=== PATIENT | female | born 1985 | race Caucasian/White ===

== ENCOUNTER 2017-10-22 15:55 | Observation (INO) | payer MEDICAID ==
[2017-10-22] MEDS ORDERED: SODIUM CHLORIDE 0.9% 500 ML IV STA (16:04)
[2017-10-22] MEDS ORDERED: SODIUM CHLORIDE 0.9% 1,000 ML IV STA (16:04)
--- NOTE | 2017-10-22 16:07 | ED ---
General Adult HPI - General Chief complaint: Chest Pain Stated complaint: Chest pain Time Seen by Provider: 10/22/17 16:04 Source: patient, RN notes reviewed, old records reviewed Mode of arrival: wheelchair Limitations: no limitations - History of Present Illness Initial comments: This is a 32-year-old female to the ER for evaluation. This patient presents today for evaluation regards to chest pain. Patient has no prior history of chest pain. No significant medical or surgical history aside from smoking. Patient has no prior heart evaluation. Patient Dr. reynolds earlier today woke up with symptoms tonight. Pain is worse when she takes a deep breath. Patient denies bowel pain eating without difficulty. No recent fevers. No trauma - Related Data Home Medications Medication Instructions Recorded Confirmed [place]-Linyah 28 1 tab PO HS 10/22/17 10/22/17 Venlafaxine HCl [Effexor XR] 75 mg PO HS 10/22/17 10/22/17 Allergies Allergy/AdvReac Type Severity Reaction Status Date / Time Penicillins Allergy Anaphylaxis Verified 10/22/17 20:53 sulfamethoxazole Allergy Rash/Hives Verified 10/22/17 20:53 [From Bactrim] trimethoprim [From Bactrim] Allergy Rash/Hives Verified 10/22/17 20:53 Review of Systems ROS Statement: Those systems with pertinent positive or pertinent negative responses have been documented in the HPI. ROS Other: All systems not noted in ROS Statement are negative. Past Medical History Past Medical History: No Reported History History of Any Multi-Drug Resistant Organisms: None Reported Past Surgical History: No Surgical Hx Reported Additional Past Surgical History / Comment(s): left eye plastics Past Anesthesia/Blood Transfusion Reactions: No Reported Reaction Past Psychological History: No Psychological Hx Reported Smoking Status: Current every day smoker Past Alcohol Use History: Rare Past Drug Use History: None Reported - Past Family History Father Family Medical History: Hypertension General Exam Limitations: no limitations General appearance: alert, in no apparent distress Head exam: Present: atraumatic, normocephalic, normal inspection Eye exam: Present: normal appearance, PERRL, EOMI. Absent: scleral icterus, conjunctival injection, periorbital swelling ENT exam: Present: normal exam, mucous membranes moist Neck exam: Present: normal inspection. Absent: tenderness, meningismus, lymphadenopathy Respiratory exam: Present: normal lung sounds bilaterally. Absent: respiratory distress, wheezes, rales, rhonchi, stridor Cardiovascular Exam: Present: regular rate, normal rhythm, normal heart sounds. Absent: systolic murmur, diastolic murmur, rubs, gallop, clicks GI/Abdominal exam: Present: soft, normal bowel sounds. Absent: distended, tenderness, guarding, rebound, rigid Extremities exam: Present: normal inspection, full ROM, normal capillary refill. Absent: tenderness, pedal edema, joint swelling, calf tenderness Back exam: Present: normal inspection Neurological exam: Present: alert, oriented X3, CN II-XII intact Psychiatric exam: Present: normal affect, normal mood Skin exam: Present: warm, dry, intact, normal color. Absent: rash Course Vital Signs 10/22/17 10/22/17 10/22/17 15:58 17:18 18:00 Temperature 98.2 F Pulse Rate 100 89 88 Respiratory 18 16 16 Rate Blood Pressure 146/81 122/67 135/75 O2 Sat by Pulse 98 99 100 Oximetry 10/22/17 20:31 Temperature Pulse Rate 88 Respiratory 18 Rate Blood Pressure 137/88 O2 Sat by Pulse 98 Oximetry - Reevaluation(s) Reevaluation #1: Patient discussed at length even the low risk for heart disease. 7 elevated enzymes, beneficial sustain hospital or at least for a second laboratory evaluation. Patient feels more comfortable being monitored in the hospital EKG Findings - EKG Comments: EKG Findings:: EKG shows sinus rhythm rate of 84, MT 134, QRS 80, QTC 434 Medical Decision Making - Medical Decision Making 32 female DEL chest pain anterior chest pain mild elevation of troponin positive d-dimer negative CTA of chest. Patient given pain control is feeling better, patient would like to stay in the hospital for further evaluation - Lab Data Result diagrams: 10/23/17 03:55 10/22/17 16:10 Lab Results 10/22/17 10/22/17 10/22/17 Range/Units 16:10 16:10 16:10 WBC 9.4 (3.8-10.6) k/uL RBC 4.62 (3.80-5.40) m/uL Hgb 13.7 (11.4-16.0) gm/dL Hct 41.2 (34.0-46.0) % MCV 89.3 (80.0-100.0) fL MCH 29.7 (25.0-35.0) pg MCHC 33.2 (31.0-37.0) g/dL RDW 12.7 (11.5-15.5) % Plt Count 228 (150-450) k/uL Neutrophils % 77 % Lymphocytes % 16 % Monocytes % 4 % Eosinophils % 2 % Basophils % 1 % Neutrophils # 7.2 (1.3-7.7) k/uL Lymphocytes # 1.5 (1.0-4.8) k/uL Monocytes # 0.3 (0-1.0) k/uL Eosinophils # 0.2 (0-0.7) k/uL Basophils # 0.0 (0-0.2) k/uL PT (9.0-12.0) sec INR (<1.2) APTT (22.0-30.0) sec D-Dimer (<0.60) mg/L FEU Sodium 138 (137-145) mmol/L Potassium 4.3 (3.5-5.1) mmol/L Chloride 105 (98-107) mmol/L Carbon Dioxide 24 (22-30) mmol/L Anion Gap 9 mmol/L BUN 12 (7-17) mg/dL Creatinine 0.81 (0.52-1.04) mg/dL Est GFR (MDRD) Af Amer >60 (>60 ml/min/1.73 sqM) Est GFR (MDRD) Non-Af >60 (>60 ml/min/1.73 sqM) Glucose 91 (74-99) mg/dL Calcium 8.9 (8.4-10.2) mg/dL Magnesium 1.9 (1.6-2.3) mg/dL Total Bilirubin 0.5 (0.2-1.3) mg/dL AST 24 (14-36) U/L ALT 22 (9-52) U/L Alkaline Phosphatase 68 (38-126) U/L Total Creatine Kinase 56 (30-135) U/L CK-MB (CK-2) 0.4 (0.0-2.4) ng/mL CK-MB (CK-2) Rel Index 0.7 Troponin I 0.023 (0.000-0.034) ng/mL Total Protein 6.8 (6.3-8.2) g/dL Albumin 4.0 (3.5-5.0) g/dL Lipase 86 (23-300) U/L 10/22/17 Range/Units 16:10 WBC (3.8-10.6) k/uL RBC (3.80-5.40) m/uL Hgb (11.4-16.0) gm/dL Hct (34.0-46.0) % MCV (80.0-100.0) fL MCH (25.0-35.0) pg MCHC (31.0-37.0) g/dL RDW (11.5-15.5) % Plt Count (150-450) k/uL Neutrophils % % Lymphocytes % % Monocytes % % Eosinophils % % Basophils % % Neutrophils # (1.3-7.7) k/uL Lymphocytes # (1.0-4.8) k/uL Monocytes # (0-1.0) k/uL Eosinophils # (0-0.7) k/uL Basophils # (0-0.2) k/uL PT 9.7 (9.0-12.0) sec INR 1.0 (<1.2) APTT 26.2 (22.0-30.0) sec D-Dimer 0.66 H (<0.60) mg/L FEU Sodium (137-145) mmol/L Potassium (3.5-5.1) mmol/L Chloride (98-107) mmol/L Carbon Dioxide (22-30) mmol/L Anion Gap mmol/L BUN (7-17) mg/dL Creatinine (0.52-1.04) mg/dL Est GFR (MDRD) Af Amer (>60 ml/min/1.73 sqM) Est GFR (MDRD) Non-Af (>60 ml/min/1.73 sqM) Glucose (74-99) mg/dL Calcium (8.4-10.2) mg/dL Magnesium (1.6-2.3) mg/dL Total Bilirubin (0.2-1.3) mg/dL AST (14-36) U/L ALT (9-52) U/L Alkaline Phosphatase (38-126) U/L Total Creatine Kinase (30-135) U/L CK-MB (CK-2) (0.0-2.4) ng/mL CK-MB (CK-2) Rel Index Troponin I (0.000-0.034) ng/mL Total Protein (6.3-8.2) g/dL Albumin (3.5-5.0) g/dL Lipase (23-300) U/L - Radiology Data Radiology results: report reviewed (Chest x-ray negative CTA chest is negative) , image reviewed Critical Care Time Critical Care Time: Yes Total Critical Care Time: 31 Disposition Clinical Impression: Chest pain Disposition: ADMITTED IP TO THIS [facility] Condition: Undetermined
[2017-10-22 16:25] LABS: Basophils % (A) 1 %; Eosinophils # (A) 0.2 k/uL (0-0.7); Eosinophils % (A) 2 %; HCT 41.2 % (34.0-46.0); HGB 13.7 gm/dL (11.4-16.0); Lymphocytes # (A) 1.5 k/uL (1.0-4.8); Lymphocytes % (A) 16 %; MCH 29.7 pg (25.0-35.0); MCHC 33.2 g/dL (31.0-37.0); MCV 89.3 fL (80.0-100.0); Mean Platelet Volume 7.8; Monocytes # (A) 0.3 k/uL (0-1.0); Monocytes % (A) 4 %; Neutrophils # (A) 7.2 k/uL (1.3-7.7); Neutrophils % (A) 77 %; Platelet Count 228 k/uL (150-450); RBC 4.62 m/uL (3.80-5.40); RDW 12.7 % (11.5-15.5); WBC 9.4 k/uL (3.8-10.6)
[2017-10-22 16:27] LABS: ALT 22 U/L (9-52); AST 24 U/L (14-36); Alkaline Phosphatase 68 U/L (38-126); Anion Gap 9 mmol/L; Blood Urea Nitrogen 12 mg/dL (7-17); Calcium 8.9 mg/dL (8.4-10.2); Carbon Dioxide 24 mmol/L (22-30); Chloride 105 mmol/L (98-107); D-Dimer 0.66 mg/L FEU (<0.60); Glucose 91 mg/dL (74-99); Lipase 86 U/L (23-300); Magnesium 1.9 mg/dL (1.6-2.3); Potassium 4.3 mmol/L (3.5-5.1); Sodium 138 mmol/L (137-145); Total Bilirubin 0.5 mg/dL (0.2-1.3); Total Protein 6.8 g/dL (6.3-8.2)
[2017-10-22 16:31] LABS: Partial Thromboplastin Time 26.2 sec (22.0-30.0); Prothrombin Time 9.7 sec (9.0-12.0)
--- NOTE | 2017-10-22 16:41 | XR ---
EXAMINATION TYPE: XR chest 2V DATE OF EXAM: 10/22/2017 COMPARISON: NONE HISTORY: Chest pain TECHNIQUE: Frontal and lateral views of the chest are obtained. FINDINGS: There is no focal air space opacity, pleural effusion, or pneumothorax seen. The cardiac silhouette size is within normal limits. There are overlying cardiac leads. Patient is rotated. The osseous structures are intact. IMPRESSION: No acute cardiopulmonary process.
[2017-10-22 16:44] LABS: Creatine Kinase MB 0.4 ng/mL (0.0-2.4); Troponin I 0.023 ng/mL (0.000-0.034)
[2017-10-22] MEDS ORDERED: RX INFO: IV CONTRAST WAS GIVEN 1 EACH MISC MISCELLANE PRN (16:54)
--- NOTE | 2017-10-22 18:38 | CT ---
EXAMINATION TYPE: CT angio chest (without 3-D renderings independent workstation) DATE OF EXAM: 10/22/2017 6:20 PM COMPARISON: NONE HISTORY: Chest pressure that radiates to back. CT DLP: 485.7 mGycm. Automated exposure control for dose reduction was used. CONTRAST: CTA scan of the thorax is performed with IV Contrast, patient injected with 100 mL of Omnip aque 350, pulmonary embolism protocol. . FINDINGS: LUNGS: The lungs are grossly clear, there is no concerning parenchymal mass or nodule identified. T here is no pleural effusion or pneumothorax seen. The tracheobronchial tree is patent. MEDIASTINUM: There is mild contrast-enhancement of the pulmonary artery and its branches, there is no CT evidence for pulmonary embolism. There are no greater than 1 cm hilar or mediastinal lymph nodes . There is no cardiomegaly. No pericardial effusion. Aorta is unremarkable. OTHER: No additional significant abnormality is seen. IMPRESSION: NO ACUTE PROCESS.
--- NOTE | 2017-10-22 18:43 | CT ---
EXAMINATION TYPE: CT abdomen pelvis w con DATE OF EXAM: 10/22/2017 COMPARISON: NONE HISTORY: Chest pressure that radiates to back. CT DLP: 1521.5 mGycm Automated exposure control for dose reduction was used. TECHNIQUE: Helical acquisition of images was performed from the lung bases through the pelvis. CONTRAST: Performed without Oral Contrast and with IV Contrast, patient injected with 100 mL of Omnip aque 350. FINDINGS: LUNG BASES: No significant abnormality is appreciated. LIVER/GB: No significant abnormality is appreciated. PANCREAS: No significant abnormality is seen. SPLEEN: No significant abnormality is seen. ADRENALS: No significant abnormality is seen. KIDNEYS: No significant abnormality is seen. FREE AIR: No free air is visualized. RETROPERITONEAL ADENOPATHY: None visualized REPRODUCTIVE ORGANS: There is a 4 cm smoothly-marginated simple-appearing left adnexal cyst noted, pr edominantly in retrouterine position. This can be further characterized with 6 week follow-up pelvic Doppler ultrasound. URINARY BLADDER: No significant abnormality is seen. PELVIC ADENOPATHY: None visualized. OSSEOUS STRUCTURES: No significant abnormality is seen. BOWEL: No significant abnormality is seen. The appendix has normal appearance. VASCULATURE: Unremarkable. IMPRESSION: NO ACUTE PROCESS.
[2017-10-22] MEDS ORDERED: NITROGLYCERIN SL TABS 0.4 MG TAB SUBLINGUAL PRN (18:52)
[2017-10-22] MEDS ORDERED: HEPARIN SODIUM,PORCINE 5,000 UNIT/ML 1 ML VIAL IV ONE (18:52)
[2017-10-22] MEDS ORDERED: ASPIRIN 81 MG PO STA (18:52)
[2017-10-22] MEDS ORDERED: HEPARIN SODIUM,PORCINE 5,000 UNIT/ML 1 ML VIAL IV PRN (18:52)
[2017-10-22] MEDS ORDERED: MORPHINE SULFATE 2 MG/ML SYRINGE IV PRN (18:52)
[2017-10-22] MEDS ORDERED: HEPARIN SOD,PORK IN 0.45% NACL 25,000 UNIT in 0.45% NACL 1 500ML.BAG IV SCH (19:00)
[2017-10-22] MEDS: METOPROLOL TARTRATE 25 MG TAB PO SCH (21:04)
[2017-10-22 22:51] LABS: Creatine Kinase MB 0.3 ng/mL (0.0-2.4); Troponin I 0.016 ng/mL (0.000-0.034)
[2017-10-23 04:10] LABS: Mean Platelet Volume 8.6; Platelet Count 190 k/uL (150-450)
[2017-10-23 04:47] LABS: Creatine Kinase MB 0.2 ng/mL (0.0-2.4); Troponin I 0.016 ng/mL (0.000-0.034)
[2017-10-23 05:02] LABS: Cholesterol 128 mg/dL (<200); HDL Cholesterol 45 mg/dL (40-60); LDL Cholesterol,Calculated 61 mg/dL (0-99); Triglycerides 108 mg/dL (<150)
[2017-10-23 08:43] VITALS: RESP 16
[2017-10-23] MEDS ORDERED: ASPIRIN 325 MG TAB PO SCH (09:00)
[2017-10-23] MEDS ORDERED: ATORVASTATIN 80 MG TAB PO SCH (09:00)
[2017-10-23] MEDS: METOPROLOL TARTRATE 25 MG TAB PO SCH (09:56)
--- NOTE | 2017-10-23 10:11 | HP ---
HISTORY AND PHYSICAL DATE OF SERVICE: 10/22/2017 CHIEF COMPLAINT: Chest pain. HISTORY OF PRESENT ILLNESS: This 32-year-old woman with a past medical history of GERD, history of depression, history of nicotine dependence, being followed by Dr. Chadd Lizarraga in the outpatient setting, was also having chest pains. Chest pain was felt in the anterior part of the chest, pressure type, without any associated symptoms but radiating to the back occasionally. The patient came to [facility] and was admitted for further evaluation and treatment. There is no history of any fever or rigors. No history of headache, loss of consciousness, seizures. Abdomen and pelvis CT scan done in the ER showed no acute process. A chest CTA showed no acute process. Patient admitted. There is no history of any fever, rigor or chills at this time. The chest pain is increasing with respirations. PAST MEDICAL HISTORY: 1. History of GERD. 2. History of left eye plastic surgery. 3. History of motion sickness. HOME MEDICATIONS: 1. Effexor XR 75 mg at bedtime. 2. [place]-Linyah 28 one p.o. at bedtime. 3. Motrin 800 mg b.i.d. p.r.n. ALLERGIES: PENICILLIN AND BACTRIM. FAMILY HISTORY: History of hypertension in the family. SOCIAL HISTORY: History of smoking on a daily basis. History of occasional alcohol intake. REVIEW OF SYSTEMS: ENT: No diminished hearing. No diminished vision. CARDIOVASCULAR SYSTEM: As mentioned earlier. RESPIRATORY SYSTEM: As mentioned earlier. GI: No nausea, vomiting. : No dysuria or retention. NERVOUS SYSTEM: No numbness, weakness. ALLERGY/IMMUNOLOGY: No asthma, hayfever. MUSCULOSKELETAL: As mentioned earlier. HEMATOLOGY/ONCOLOGY: No history of anemia. ENDOCRINE: No history of diabetes, hypothyroidism. CONSTITUTIONAL: As mentioned earlier. DERMATOLOGY: Negative. RHEUMATOLOGY: Negative. PSYCHIATRY: As mentioned earlier. PHYSICAL EXAMINATION: Patient is alert and oriented x3. Pulse is 77, blood pressure 135/78, respiration 16, temperature 98.7, pulse ox 100% on room air. HEENT: Conjunctivae normal. NECK: No jugular venous distention. CARDIOVASCULAR SYSTEM: S1, S2 muffled. RESPIRATORY SYSTEM: Breath sounds diminished at the bases. A few scattered rhonchi and crackles. ABDOMEN: Soft, nontender. No mass palpable. LEGS: No edema. No swelling. NERVOUS SYSTEM: Higher functions as mentioned earlier. Moves all 4 limbs. No focal motor or sensory deficit. LYMPHATICS: No lymph node palpable in neck, axillae or groin. SKIN: No ulcer, rash, bleeding. LABS: CBC within normal limits. Otherwise, CMP within normal limits. ASSESSMENT: 1. Chest pain for further evaluation; possibly unstable angina; possibly pleuritic in nature. 2. History of gastroesophageal reflux disease. 3. History of depression. 4. History of nicotine dependence. RECOMMENDATIONS AND DISCUSSION: In this 32-year-old woman who presented with multiple complex medical issues, we will monitor the patient closely, continue the current medications, continue with symptomatic treatment. Rule out myocardial infarction. Continue with heparin, unstable angina protocol. Otherwise, resume the home medications. Symptomatic treatment will be provided. Two-D echo is ordered. The prognosis is guarded because of multiple complex medical issues. Further recommendations to follow. A copy of this dictation is being forwarded to Dr. Lizarraga, who is the primary physician. MMBERYLL / ROXANAN: [id number] /
[2017-10-23 12:20] VITALS: BP 116/56; PULSE 94; TEMP 98.8
--- NOTE | 2017-10-23 13:20 | ECHOF ---
Referral Reason:trop MEASUREMENTS -------- HEIGHT: 162.6 cm WEIGHT: 106.6 kg BP: 120/60 RVIDd: 2.8 cm (< 3.3) IVSd: 1.0 cm (0.6 - 1.1) LVIDd: 4.8 cm (3.9 - 5.3) LVPWd: 0.8 cm (0.6 - 1.1) IVSs: 1.1 cm LVIDs: 3.6 cm LVPWs: 1.3 cm LA Diam: 3.3 cm (2.7 - 3.8) LAESV Index (A-L): 31.51 ml/m Ao Diam: 2.8 cm (2.0 - 3.7) AV Cusp: 1.7 cm (1.5 - 2.6) LA Diam: 3.6 cm (2.7 - 3.8) MV EXCURSION: 18.048 mm (> 18.000) MV EF SLOPE: 132 mm/s (70 - 150) EPSS: 0.4 cm MV E Darrell: 0.86 m/s MV DecT: 131 ms MV A Darrell: 0.61 m/s MV E/A Ratio: 1.42 RAP: 5.00 mmHg RVSP: 18.23 mmHg FINDINGS -------- Sinus rhythm. This was a technically good study. LV size, wall thickness and systolic function are normal, with an EF greater than 55%. The right ventricle is normal in size. LA is midly dilated 29-33ml/m2. The right atrial size is normal. The aortic valve is trileaflet, and appears structurally normal. No aortic stenosis or regurgitation. Mild mitral regurgitation is present. Mild tricuspid regurgitation present. There is no evidence of pulmonary hypertension. The right v entricular systolic pressure, as measured by Doppler, is 18.23mmHg. There is no pulmonic regurgitation present. The aortic root size is normal. There is no pericardial effusion. CONCLUSIONS -------- 1. LV size, wall thickness and systolic function are normal, with an EF greater than 55%. 2. LA is midly dilated 29-33ml/m2. 3. The aortic valve is trileaflet, and appears structurally normal. No aortic stenosis or regurgitati on. 4. Mild mitral regurgitation is present. 5. Mild tricuspid regurgitation present. 6. There is no evidence of pulmonary hypertension. 7. The right ventricular systolic pressure, as measured by Doppler, is 18.23mmHg. 8. There is no pulmonic regurgitation present. 9. The aortic root size is normal. 10. There is no pericardial effusion. CUSTOMER EXPERIENCE LEADER: Isha King RDCS
--- NOTE | 2017-10-23 14:09 | P.DS ---
Providers Date of admission: 10/22/17 18:52 Attending physician: Viktoriya Crump Consults: 10/22/17 18:52 Consult Physician Urgent Consulting Provider: Gilebrt Waller Consult Reason/Comments: cp Do you want consulting provider notified?: Yes Primary care physician: Chadd Lizarraga Hospital Course: Patient was admitted with pleuritic chest pain, patient was evaluated by cardiology, patient chest pain appears to be atypical patient had a CAT scan of the chest which did not show any pulmonary embolism or pneumonia is still a concern of esophagitis because of which I asked her to discontinue ibuprofen patient already takes Prilosec at home. Patient pain radiates to the back because of which there is a concern about cholelithiasis although pain is well- controlled wanted to go home because of which patient will be discharged today to get an outpatient ultrasound of the gallbladder results to be faxed to PCPs office. PHYSICAL EXAMINATION: GENERAL: The patient is alert and oriented x3, not in any acute distress. Well developed, well nourished. HEENT: Pupils are round and equally reacting to light. EOMI. No scleral icterus. No conjunctival pallor. Normocephalic, atraumatic. No pharyngeal erythema. No thyromegaly. CARDIOVASCULAR: S1 and S2 present. No murmurs, rubs, or gallops. PULMONARY: Chest is clear to auscultation, no wheezing or crackles. ABDOMEN: Soft, nontender, nondistended, normoactive bowel sounds. No palpable organomegaly. MUSCULOSKELETAL: No joint swelling or deformity. EXTREMITIES: No cyanosis, clubbing, or pedal edema. NEUROLOGICAL: Gross neurological examination did not reveal any focal deficits. SKIN: No rashes. Patient Condition at Discharge: Undetermined Plan - Discharge Summary Discharge Rx Participant: No New Discharge Prescriptions: Discontinued Ibuprofen [Motrin] 800 mg PO BID PRN PRN Reason: Pain No Action Venlafaxine HCl [Effexor XR] 75 mg PO HS [place]-Linyah 28 1 tab PO HS Discharge Medication List [place]-Linyah 28 1 tab PO HS 10/22/17 [History] Venlafaxine HCl [Effexor XR] 75 mg PO HS 10/22/17 [History] Follow up Appointment(s)/Referral(s): Chadd Lizarraga MD [Primary Care Provider] - 3 Days Lenin Rasmussen MD [STAFF PHYSICIAN] - 2 Weeks (Call office and make a follow up appointment with Dr. Rasmussen) Patient Instructions/Handouts: Chest Pain (ED) Activity/Diet/Wound Care/Special Instructions: Outpatient Ultrasound of Gallbladder recommended. Call outpatient scheduling for appointment Discharge Disposition: HOME SELF-CARE
[2017-10-23] MEDS ORDERED: VENLAFAXINE HCL ER 75 MG CAP PO SCH (21:00)
--- NOTE | 2017-10-23 23:11 | CONS ---
CONSULTATION Mrs. Alvarez is a 32-year-old female, who is seen for evaluation of chest pain. Patient's medical records were reviewed. This patient gives a history that she started having chest discomfort for last couple of days. The pain is in the substernal area. It is persistence. Initially she was slightly nauseated. The patient's pain increases with slightly deep breaths. She denies any significant shortness of breath. She denies chest pain. Pain does not increase with swelling. HOME MEDICATIONS: Include Effexor, one tablet at night. PAST MEDICAL HISTORY: Includes no history of any surgery. The patient has left . SOCIAL HISTORY: The patient is currently an everyday smoker. PHYSICAL EXAMINATION: In the emergency room, patient's vital signs were stable. The patient at present is comfortable. She is having mild discomfort. Blood pressure is 135/75 mmHg. Heart rate is 80 per minute. HEENT examination is negative. NECK: Supple. There is no increase in jugular venous pressure. Both the carotid pulses are felt. There is no bruit. Chest is symmetric. Heart the PMI is not felt. First and 2nd sounds normal. LUNGS: Clinically clear to auscultation and percussion. ABDOMEN: Soft. Liver and spleen not enlarged. Bowel sounds are heard. Extremities, peripheral pulses 2+. The patient's EKG shows normal sinus rhythm without any acute ischemic changes. The patient's three sets of troponins are almost identical and borderline elevated. The patient's echocardiogram reveals normal left ventricular systolic function. FINAL IMPRESSION: This patient's chest pain is atypical chest pain pleuritic in nature. EKG is normal. Echocardiogram reveals normal left ventricular systolic function. A CT scan of the chest pain as well is negative. There is no evidence of any calcium noted in the colon noted on the CT scan of the chest. We will evaluate the patient with a stress test as an outpatient. will be done. The patient can be discharged home. Otherwise, continue Prilosec twice a day. MMODL / IJN: [id number] /
== END 2017-10-23 13:40 | disposition home or self-care (01) ==
LOC: EC 15:55 → 3OBS 18:52 → 3SUR 10-23 07:37
PROVIDERS: ADMIT Hospitalist; ATTEND Hospitalist
DX: R07.81 Pleurodynia (principal); K21.9 Gastro-esophageal reflux disease without esophagitis; F32.9 Major depressive disorder, single episode, unspecified; F17.200 Nicotine dependence, unspecified, uncomplicated; R79.1 Abnormal coagulation profile; R89.0 Abnormal level of enzymes in specimens from other organs, systems and tissues; Z79.899 Other long term (current) drug therapy; Z88.0 Allergy status to penicillin; Z88.2 Allergy status to sulfonamides; Z82.49 Family history of ischemic heart disease and other diseases of the circulatory system; Z98.890 Other specified postprocedural states
CPT/HCPCS: 96376 ×2; 96366 ×2; 96361; 96365; 99291; 36415; 93005; 93306; 85379; 80061; 80053; 82550 ×2; 82553 ×2; 83690; 83735; 84484 ×2; 85025; 85049; 85610; 85730 ×2; 71046; 71275; 74177; G0378 ×2; J1644 ×3; Q9967

== ENCOUNTER → 2017-10-25 | Outpatient (CLI) | payer MEDICAID ==
--- NOTE | 2017-10-25 14:27 | US ---
EXAMINATION TYPE: US gallbladder DATE OF EXAM: 10/25/2017 COMPARISON: None CLINICAL HISTORY: K80.80 CHOLELITHIASIS. EXAM MEASUREMENTS: Liver Length: 14.7 cm Gallbladder Wall: 0.1 cm CBD: 0.4 cm Right Kidney: 10x 3.7 x 4.0 cm Pancreas: wnl portions seen, there is some bowel gas present. Liver: wnl Gallbladder: wnl Evidence for sonographic Carson's sign: No CBD: wnl Right Kidney: wnl IMPRESSION: 1. Normal right upper quadrant ultrasound as visualized.
== END | disposition home or self-care (01) ==
LOC: RADUSWWP 13:02
PROVIDERS: ATTEND Surgery
CPT/HCPCS: 76705

== ENCOUNTER 2017-11-17 10:03 | Day surgery (SDC) | payer MEDICAID ==
[2017-11-15 09:06] VITALS: BMI 37.9
[~2017-11-17 10:03] MED LIST: LACTATED RINGERS 1,000 ML IV SCH; LIDOCAINE 1% 20 ML VIAL (10MG/ML) FOR IV START INTRADERMA PRN
[2017-11-17 10:19] VITALS: RESP 16; TEMP 98.1
[2017-11-17] MEDS ORDERED: PROPOFOL 10 MG/ML 20 ML VIAL IV ONE (10:37)
[2017-11-17] MEDS ORDERED: GLYCOPYRROLATE 0.2 MG/ML 2 ML VIAL ONE (10:37)
[2017-11-17] MEDS ORDERED: LIDOCAINE 1% INJ 10MG/ML (20 ML MDV) ONE (10:37)
--- NOTE | 2017-11-17 10:50 | P.PCN ---
Date of Procedure: 11/17/17 Procedure(s) Performed: BRIEF HISTORY: Patient is a 32-year-old, pleasant, at female, scheduled for an upper endoscopy as a part of evaluation of long-standing history of GERD of 4 years duration. 2 Weeks ago she had an episode of severe chest pain and went to the emergency room and had cardiac workup done that was negative. She was started on Prilosec 20 mg daily basis and since then she is doing much better. She is scheduled for an upper endoscopy to evaluate further. PROCEDURE PERFORMED: Esophagogastroduodenoscopy with biopsy. PREOPERATIVE DIAGNOSIS: GERD and atypical chest. IV sedation per anesthesia. PROCEDURE: After informed consent was obtained, the patient was brought into the endoscopy unit. IV sedation was administered by Anesthesia under continuous monitoring. Initially the Olympus GIF-140 video endoscope was inserted into the mouth. Esophagus intubated without any difficulty. It was gradually advanced into the stomach and duodenum and carefully examined. The bulb and the second part of the duodenum appeared normal. The scope at this time was withdrawn to the stomach, adequately insufflated with air, and upon careful examination, mucosa of the antrum, had scattered erosions and biopsies were done from this area. The body, cardia and the fundus appeared normal. The scope was then withdrawn into the esophagus. Small sliding Hiatal hernia noted. The GE junction was located at 39 cm from the incisors. The esophagus appeared normal. There were no erosions or ulcerations seen. In the proximal esophagus there was a 5 mL polyp identified which was biopsied and the patient tolerated the procedure well. IMPRESSION: 1. Antral erosive gastritis. 2. Small hiatal hernia but no evidence of esophagitis or Sosa's esophagus. 3. 5 mm polyp in the proximal esophagus status post biopsy RECOMMENDATIONS: The findings of this examination were discussed with the patient as well as a family. She was advised to follow with the biopsy results. Her symptoms are suggestive of gastroesophageal reflux and hence she was advised to continue with Prilosec 20 mg daily and continue to follow antireflux measures..
[2017-11-17 11:27] VITALS: PULSE 80
[2017-11-17 11:48] VITALS: BP 125/74
== END 2017-11-17 11:48 | disposition home or self-care (01) ==
LOC: ORWHC2ENDO 10:03
PROVIDERS: ATTEND Internal Medicine Gastroenterology
DX: K21.0 Gastro-esophageal reflux disease with esophagitis (principal); K29.60 Other gastritis without bleeding; K44.9 Diaphragmatic hernia without obstruction or gangrene; F32.9 Major depressive disorder, single episode, unspecified; Z79.3 Long term (current) use of hormonal contraceptives; Z79.899 Other long term (current) drug therapy; Z88.0 Allergy status to penicillin; Z88.2 Allergy status to sulfonamides
CPT/HCPCS: 81025; 88305; 43239; J2001; J2704

== ENCOUNTER → 2018-01-28 | Outpatient (CLI) | payer MEDICAID ==
[2018-01-29 01:47] LABS: HIV AB P24 Non-Reactive (Non-Reactive); HIV P24 AG Non-Reactive (Non-Reactive)
== END | disposition home or self-care (01) ==
LOC: LABWHC1 16:22
PROVIDERS: ATTEND Obstetrics & Gynecology
DX: Z11.3 Encounter for screening for infections with a predominantly sexual mode of transmission (principal); Z20.2 Contact with and (suspected) exposure to infections with a predominantly sexual mode of transmission
CPT/HCPCS: 36415; 86695; 86696; 86704; 86780; 87340; 87390

== ENCOUNTER → 2020-03-28 | Outpatient (CLI) | payer OTHER ==
--- NOTE | 2020-03-28 10:31 | XR ---
Left foot HISTORY: Trauma and pain 3 views of the left foot Bone mineralization, joint spaces and alignment are maintained. Question a mild cortical irregularity to the proximal fifth metatarsal on the oblique view, possible normal variant, difficult to exclude nondisplaced fracture. Digits are flexed which may limit sensitivity. There is a plantar heel spur. C alcification present at the insertion of the Achilles tendon. IMPRESSION: Correlate for point tenderness proximal fifth metatarsal. No dislocation is evident. Foll ow-up as indicated.
== END | disposition home or self-care (01) ==
LOC: RADXRMAIN 09:26
PROVIDERS: ATTEND Emergency Medicine
DX: S93.602A Unspecified sprain of left foot, initial encounter (principal)

== ENCOUNTER 2024-11-17 12:47 | Emergency (ER) | payer BC, MEDICAID ==
[2024-11-17 12:53] VITALS: BP 142/77; PULSE 94; RESP 17
--- NOTE | 2024-11-17 13:25 | ED ---
General Adult HPI - General Chief complaint: Nausea/Vomiting/Diarrhea Stated complaint: Vomiting(19 weeks preg) Time Seen by Provider: 11/17/24 13:01 Source: patient, RN notes reviewed Mode of arrival: ambulatory Limitations: no limitations - History of Present Illness Initial comments: This is a 39-year-old female at 19 weeks gestation presenting to the emergency department for complaint of nausea, vomiting, diarrhea over the past 12 to 16 hours. She endorses multiple episodes of diarrhea and vomiting with no hematemesis or hematochezia or melena. She denies fevers, chills, abdominal pain, vaginal bleeding, cough, rhinorrhea, congestion. Patient states that she was instructed by her OB to report to the emergency department with concern for possible dehydration. She denies urinary complaints or flank pain. - Related Data Home Medications Medication Instructions Recorded Confirmed Alfalfa-Linyah 28 1 tab PO HS 10/22/17 11/15/17 Venlafaxine HCl [Effexor XR] 75 mg PO HS 10/22/17 11/15/17 Omeprazole Magnesium [PriLOSEC OTC] 20 mg PO DAILY 11/15/17 11/15/17 Allergies Allergy/AdvReac Type Severity Reaction Status Date / Time fluconazole [From Diflucan] Allergy Unknown Verified 11/17/24 12:53 Penicillins Allergy Anaphylaxis Verified 11/17/24 12:53 sulfamethoxazole Allergy Rash/Hives Verified 11/17/24 12:53 [From Bactrim] trimethoprim [From Bactrim] Allergy Rash/Hives Verified 11/17/24 12:53 Review of Systems ROS Statement: Those systems with pertinent positive or pertinent negative responses have been documented in the HPI. ROS Other: All systems not noted in ROS Statement are negative. Past Medical History Past Medical History: Chest Pain / Angina Additional Past Medical History / Comment(s): RECENT ADMISSION FOR CHEST PAIN History of Any Multi-Drug Resistant Organisms: None Reported Past Surgical History: No Surgical Hx Reported Additional Past Surgical History / Comment(s): left eye plastics Past Anesthesia/Blood Transfusion Reactions: No Reported Reaction Past Psychological History: No Psychological Hx Reported Smoking Status: Never smoker Past Alcohol Use History: None Reported, Rare Past Drug Use History: None Reported - Past Family History Father Family Medical History: Hypertension General Exam Limitations: no limitations Respiratory exam: Present: normal lung sounds bilaterally. Absent: respiratory distress, wheezes, rales, rhonchi, stridor Cardiovascular Exam: Present: regular rate, normal rhythm, normal heart sounds. Absent: systolic murmur, diastolic murmur, rubs, gallop, clicks GI/Abdominal exam: Present: soft, normal bowel sounds. Absent: distended, tenderness, guarding, rebound, rigid Extremities exam: Present: normal inspection, full ROM, normal capillary refill. Absent: tenderness, pedal edema, joint swelling, calf tenderness Back exam: Present: normal inspection Skin exam: Present: warm, dry, intact, normal color. Absent: rash Course Vital Signs 11/17/24 11/17/24 12:50 15:06 Temperature 98.2 F 98.8 F Pulse Rate 94 Respiratory 17 Rate Blood Pressure 142/77 O2 Sat by Pulse 100 Oximetry Medical Decision Making - Medical Decision Making Was pt. sent in by a medical professional or institution ([facility], ELECTRICIAN [employer], urgent care, hospital, or fpc...) When possible be specific @ -No Did you speak to anyone other than the patient for history (EMS, parent, family, police, friend...)? What history was obtained from this source @ -No Did you review nursing and triage notes (agree or disagree)? Why? @ -I reviewed and agree with nursing and triage notes Were old charts reviewed (outside hosp., previous admission, EMS record, old EKG, old radiological studies, urgent care reports/EKG's, fpc records)? Report findings @ -No old charts were reviewed Differential Diagnosis (chest pain, altered mental status, abdominal pain women, abdominal pain men, vaginal bleeding, weakness, fever, dyspnea, syncope, headache, dizziness, GI bleed, back pain, seizure, CVA, palpatations, mental health, musculoskeletal)? @ -Differential Abdominal Pain Women: Appendicitis, Cholecystitis, diverticulosis, ischemic bowel, pancreatitis, hepatitis, UTI, gastroenteritis, AAA, incarcerated hernia, bowel obstruction, constipation, inflammatory bowel, hepatitis, peptic ulcer disease, splenic infar ction, perforated viscus, vulvitis, ovarian torsion, PID, kidney stone, placenta abruption, this is not meant to be an all-inclusive list EKG interpreted by me (3pts min.). @ -none X-rays interpreted by me (1pt min.). @ -None done CT interpreted by me (1pt min.). @ -None done U/S interpreted by me (1pt. min.). @ -None done What testing was considered but not performed or refused? (CT, X-rays, U/S, labs)? Why? @ -None What meds were considered but not given or refused? Why? @ -None Did you discuss the management of the patient with other professionals (professionals i.e. Dr., PA, ELECTRICIAN BUS, lab, RT, psych nurse, social security specialist, structures technician, teacher, parking regulation enforcement officer, insurance case manager)? Give summary @ -No Was smoking cessation discussed for >3mins.? @ -No Was critical care preformed (if so, how long)? @ -No Were there social determinants of health that impacted care today? How? (Homelessness, low income, unemployed, alcoholism, drug addiction, transportation, low edu. Level, literacy, decrease access to med. care, senior care, rehab)? @ -No Was there de-escalation of care discussed even if they declined (Discuss DNR or withdrawal of care, Hospice)? DNR status @ -No What co-morbidities impacted this encounter? (DM, HTN, Smoking, COPD, CAD, Cancer, CVA, ARF, Chemo, Hep., AIDS, mental health diagnosis, sleep apnea, morbid obesity)? @ -None Was patient admitted / discharged? Hospital course, mention meds given and route, prescriptions, significant lab abnormalities, going to OR and other pertinent info. @ -Discharge. 39-year-old female presented emergency department complaint of nausea, vomiting, diarrhea. Overall patient is well appearing in No signs acute distress. Abdominal examination is unremarkable. She is provided with IV fluids and antiemetics. Labs remarkable for hyponatremia of 132 likely pseudohyponatremia secondary to . Urinalysis is unremarkable. heart tones are completed at bedside with no abnormalities. Patient is feeling better after fluids and antiemetics. Supportive treatment discussed. discussed with Dr. james Undiagnosed new problem with uncertain prognosis? @ -No Drug Therapy requiring intensive monitoring for toxicity (Heparin, Nitro, Insulin, Cardizem)? @ -No Were any procedures done? @ -No Diagnosis/symptom? @ -acute nausea and vomiting, diarrhea Acute, or Chronic, or Acute on Chronic? @ -acute Uncomplicated (without systemic symptoms) or Complicated (systemic symptoms)? @ -uncomplicated Side effects of treatment? @ -No Exacerbation, Progression, or Severe Exacerbation? @ -No Poses a threat to life or bodily function? How? (Chest pain, [place], [place], pneumonia, PE, COPD, DKA, ARF, appy, cholecystitis, CVA, Diverticulitis, Homicidal, Suicidal, threat to staff... and all critical care pts) @ -No - Lab Data Result diagrams: 11/17/24 13:26 11/17/24 13:26 Lab Results 11/17/24 11/17/24 11/17/24 Range/Units 13:26 13: 13: WBC 7.9 (3.8-10.6) k/uL RBC 4.34 (3.80-5.40) m/uL Hgb 12.4 (11.4-16.0) gm/dL Hct 37.5 (34.0-46.0) % MCV 86.4 (80.0-100.0) fL MCH 28.6 (25.0-35.0) pg MCHC 33.1 (31.0-37.0) g/dL RDW 14.0 (11.5-15.5) % Plt Count 197 (150-450) k/uL MPV 8.9 Neutrophils % 81 % Lymphocytes % 12 % Monocytes % 4 % Eosinophils % 1 % Basophils % 0 % Neutrophils # 6.5 (1.3-7.7) k/uL Lymphocytes # 1.0 (1.0-4.8) k/uL Monocytes # 0.3 (0-1.0) k/uL Eosinophils # 0.1 (0-0.7) k/uL Basophils # 0.0 (0-0.2) k/uL Sodium 132 L (137-145) mmol/L Potassium 4.0 (3.5-5.1) mmol/L Chloride 102 (98-107) mmol/L Carbon Dioxide 22 (22-30) mmol/L Anion Gap 8 mmol/L BUN 4 L (7-17) mg/dL Creatinine 0.64 (0.52-1.04) mg/dL Est GFR (CKD-EPI)AfAm >90 (>60 ml/min/1.73 sqM) Est GFR (CKD-EPI)NonAf >90 (>60 ml/min/1.73 sqM) Glucose 94 (74-99) mg/dL Calcium 9.1 (8.4-10.2) mg/dL Total Bilirubin 0.5 (0.2-1.3) mg/dL AST 20 (14-36) U/L ALT 21 (4-34) U/L Alkaline Phosphatase 65 (38-126) U/L Total Protein 6.3 (6.3-8.2) g/dL Albumin 3.7 (3.5-5.0) g/dL Amylase 44 (30-110) U/L Lipase 79 (23-300) U/L Urine Color Yellow Urine Appearance Cloudy H (Clear) Urine pH 7.5 (5.0-8.0) Ur Specific [place] 1.025 (1.001-1.035) Urine Protein Trace H (Negative) Urine Glucose (UA) Negative (Negative) Urine Ketones Negative (Negative) Urine Blood Negative (Negative) Urine Nitrite Negative (Negative) Urine Bilirubin Negative (Negative) Urine Urobilinogen 8.0 (<2.0) mg/dL Ur Leukocyte Esterase Negative (Negative) Urine RBC <1 (0-5) /hpf Urine WBC 1 (0-5) /hpf Ur Squamous Epith Cells 9 H (0-4) /hpf Urine Bacteria Occasional H (None) /hpf Urine Mucus Few H (None) /hpf Disposition Clinical Impression: Nausea and vomiting Disposition: HOME SELF-CARE Condition: Good Instructions (If sedation given, give patient instructions): Acute Nausea and Vomiting (ED) Additional Instructions: Please return to the Emergency Department if symptoms worsen or any other concerns. Is patient prescribed a controlled substance at d/c from ED?: No Referrals: Chadd Lizarraga MD [Primary Care Provider] - 1-2 days Time of Disposition: 14:53
[2024-11-17] MEDS: SODIUM CHLORIDE 0.9% 1,500 ML IV STA (13:40)
[2024-11-17] MEDS: ONDANSETRON 4 MG/2 ML VIAL IVP STA (13:42)
[2024-11-17 14:02] LABS: Basophils % (A) 0 %; Eosinophils # (A) 0.1 k/uL (0-0.7); Eosinophils % (A) 1 %; HCT 37.5 % (34.0-46.0); HGB 12.4 gm/dL (11.4-16.0); Lymphocytes % (A) 12 %; MCH 28.6 pg (25.0-35.0); MCHC 33.1 g/dL (31.0-37.0); MCV 86.4 fL (80.0-100.0); Mean Platelet Volume 8.9; Monocytes # (A) 0.3 k/uL (0-1.0); Monocytes % (A) 4 %; Neutrophils # (A) 6.5 k/uL (1.3-7.7); Neutrophils % (A) 81 %; Platelet Count 197 k/uL (150-450); RBC 4.34 m/uL (3.80-5.40); WBC 7.9 k/uL (3.8-10.6)
[2024-11-17 14:13] LABS: Appearance,Urine Cloudy (Clear); Bacteria,Urine Occasional /hpf; Bilirubin,Urine Negative (Negative); Blood,Urine Negative (Negative); Color,Urine Yellow; Glucose,Urine (UA) Negative (Negative); Ketones,Urine Negative (Negative); Leukocyte Esterase,Urine Negative (Negative); Mucus,Urine Few /hpf; Nitrite,Urine Negative (Negative); PH, Urine 7.5 (5.0-8.0); Protein,Urine Trace (Negative); RBC,Urine <1 /hpf (0-5); Specific Gravity,Urine 1.025 (1.001-1.035); Squamous Epithelial Cell,Urine 9 /hpf (0-4); WBC,Urine 1 /hpf (0-5)
[2024-11-17 14:31] LABS: ALT 21 U/L (4-34); AST 20 U/L (14-36); African American GFR (CKD) >90 (>60 ml/min/1.73 sqM); Albumin 3.7 g/dL (3.5-5.0); Alkaline Phosphatase 65 U/L (38-126); Amylase 44 U/L (30-110); Anion Gap 8 mmol/L; Blood Urea Nitrogen 4 mg/dL (7-17); Calcium 9.1 mg/dL (8.4-10.2); Carbon Dioxide 22 mmol/L (22-30); Chloride 102 mmol/L (98-107); Glucose 94 mg/dL (74-99); Lipase 79 U/L (23-300); Non-African American GFR(CKD) >90 (>60 ml/min/1.73 sqM); Sodium 132 mmol/L (137-145); Total Bilirubin 0.5 mg/dL (0.2-1.3); Total Protein 6.3 g/dL (6.3-8.2)
[2024-11-17 15:09] VITALS: TEMP 98.8
== END 2024-11-17 16:06 | disposition home or self-care (01) ==
LOC: EC 12:47
DX: O21.9 Vomiting of pregnancy, unspecified (principal); O99.612 Diseases of the digestive system complicating pregnancy, second trimester; R19.7 Diarrhea, unspecified; Z88.0 Allergy status to penicillin; Z88.1 Allergy status to other antibiotic agents; Z88.2 Allergy status to sulfonamides; Z88.8 Allergy status to other drugs, medicaments and biological substances; Z3A.19 19 weeks gestation of pregnancy
CPT/HCPCS: 36415; 80053; 82150; 83690; 85025; 81001; 99284; 96374; 96361; J2405

== ENCOUNTER 2024-12-01 16:18 | Emergency (ER) | payer BC ==
[2024-12-01 17:23] VITALS: RESP 18
--- NOTE | 2024-12-01 17:25 | XR ---
EXAMINATION TYPE: XR chest 2V DATE OF EXAM: 12/01/2024 5:20 PM COMPARISON: 10/22/2017 CLINICAL INDICATION: Female, 39 years old with history of Cough, fever, TECHNIQUE: Frontal and lateral views of the chest are obtained. FINDINGS: There is no focal air space opacity, pleural effusion, or pneumothorax seen. The cardiac silhouette size is within normal limits. The osseous structures are intact. IMPRESSION: No acute cardiopulmonary process. [facility], , 12/01/2024 5:23 PM
--- NOTE | 2024-12-01 18:21 | ED ---
URI HPI - General Chief Complaint: Upper Respiratory Infection Stated Complaint: Chest pain,Cough-21 weeks preg Time Seen by Provider: 12/01/24 16:29 Source: patient, RN notes reviewed Mode of arrival: ambulatory Limitations: no limitations - History of Present Illness Initial Comments: This is a 21-week 39-year-old female presenting with sick symptoms x 3 days. Patient states she went to urgent care yesterday and was tested for COVID, flu and strep throat with all negative testing. Endorses low-grade fever, sore throat, congestion and dry cough. Endorses use of Tylenol and Robitussin with minimal relief. Denies chills, dyspnea, chest pain, abdominal pain, N/V/D, vaginal bleeding/discharge, urinary symptoms. MD Complaint: cough, sore throat, nasal congestion Onset/Timin -: days(s) Associated Symptoms: fever Treatments Prior to Arrival: Acetaminophen, "cold medicine" - Related Data Home Medications Medication Instructions Recorded Confirmed Chaves-Linyah 28 1 tab PO HS 10/22/17 11/15/17 Venlafaxine HCl [Effexor XR] 75 mg PO HS 10/22/17 11/15/17 Omeprazole Magnesium [PriLOSEC OTC] 20 mg PO DAILY 11/15/17 11/15/17 Previous Rx's Medication Instructions Recorded Budesonide [Budesonide Nasal [place]] 1 spray EA NOSTRIL Q12H PRN #8.43 12/01/24 ml Sodium Chloride [Saline Mist] 1 spray EA NOSTRIL Q3H PRN #45 ml 12/01/24 Allergies Allergy/AdvReac Type Severity Reaction Status Date / Time fluconazole [From Diflucan] Allergy Unknown Verified 12/01/24 16:27 Penicillins Allergy Anaphylaxis Verified 12/01/24 16:27 sulfamethoxazole Allergy Rash/Hives Verified 12/01/24 16:27 [From Bactrim] trimethoprim [From Bactrim] Allergy Rash/Hives Verified 12/01/24 16:27 Review of Systems ROS Statement: Those systems with pertinent positive or pertinent negative responses have been documented in the HPI. ROS Other: All systems not noted in ROS Statement are negative. Past Medical History Past Medical History: Chest Pain / Angina Additional Past Medical History / Comment(s): RECENT ADMISSION FOR CHEST PAIN History of Any Multi-Drug Resistant Organisms: None Reported Past Surgical History: No Surgical Hx Reported Additional Past Surgical History / Comment(s): left eye plastics Past Anesthesia/Blood Transfusion Reactions: No Reported Reaction Past Psychological History: No Psychological Hx Reported Smoking Status: Never smoker Past Alcohol Use History: None Reported, Rare Past Drug Use History: None Reported - Past Family History Father Family Medical History: Hypertension General Exam Limitations: no limitations General appearance: alert, in no apparent distress Head exam: Present: atraumatic, normocephalic, other (Positive frontal and maxillary sinus TTP) Eye exam: Present: normal appearance, PERRL, EOMI. Absent: scleral icterus, conjunctival injection, periorbital swelling ENT exam: Present: normal exam, normal oropharynx, mucous membranes dry, TM's normal bilaterally Neck exam: Present: normal inspection. Absent: tenderness, meningismus, lymphadenopathy Respiratory exam: Present: normal lung sounds bilaterally. Absent: respiratory distress, wheezes, rales, rhonchi, stridor Cardiovascular Exam: Present: regular rate, normal rhythm, normal heart sounds. Absent: systolic murmur, diastolic murmur, rubs, gallop, clicks GI/Abdominal exam: Present: soft, normal bowel sounds. Absent: distended, tenderness, guarding, rebound, rigid Extremities exam: Present: normal inspection, full ROM, normal capillary refill. Absent: tenderness, pedal edema, joint swelling, calf tenderness Back exam: Present: normal inspection Neurological exam: Present: alert, oriented X3, CN II-XII intact Psychiatric exam: Present: normal affect, normal mood Skin exam: Present: warm, dry, intact, normal color. Absent: rash Course Vital Signs 12/01/24 12/01/24 12/01/24 16:25 17:16 18:49 Temperature 98.4 F 98.2 F Pulse Rate 106 H 96 Respiratory 20 18 18 Rate Blood Pressure 138/84 130/82 O2 Sat by Pulse 99 99 Oximetry Medical Decision Making - Medical Decision Making Was pt. sent in by a medical professional or institution (, PA, PHOTOENGRAVING PRINTER, urgent care, hospital, or senior living...) When possible be specific @ -No Did you speak to anyone other than the patient for history (EMS, parent, family, police, friend...)? What history was obtained from this source @ -No Did you review nursing and triage notes (agree or disagree)? Why? @ -I reviewed and agree with nursing and triage notes Were old charts reviewed (outside hosp., previous admission, EMS record, old EKG, old radiological studies, urgent care reports/EKG's, senior living records)? Report findings @ -No old charts were reviewed Differential Diagnosis (chest pain, altered mental status, abdominal pain women, abdominal pain men, vaginal bleeding, weakness, fever, dyspnea, syncope, headache, dizziness, GI bleed, back pain, seizure, CVA, palpatations, mental health, musculoskeletal)? @ -Differential Fever: Pneumonia, viral URI, endocarditis, myocarditis, pericarditis, otitis, sinusitis, peritonsillar Abscess, retropharyngeal Abscess, epiglottitis, peritonitis, appendicitis, Ebony cystitis, diverticulitis, hepatitis, colitis, UTI, PID, TOA, pyelonephritis, prostatitis, epididymitis, meningitis, encephalitis, pulmonary embolism, CVA, thyroid storm, pancreatitis, adrenal crisis, cavernous sinus thrombosis, this is not meant to be an all-inclusive list. EKG interpreted by me (3pts min.). @ -Sinus tachycardia without ST deviation or T wave inversion. Ventricular rate 100 bpm, LUCRECIA 142 ms, QRS duration 87 ms, QTc 389 ms. X-rays interpreted by me (1pt min.). @ -CXR shows no acute cardiopulmonary process CT interpreted by me (1pt min.). @ -None done U/S interpreted by me (1pt. min.). @ -None done What testing was considered but not performed or refused? (CT, X-rays, U/S, labs)? Why? @ -Patient declined Cepheid and strep test, stating she was tested yesterday. What meds were considered but not given or refused? Why? @ -None Did you discuss the management of the patient with other professionals (professionals i.e. , PA, PHOTOENGRAVING PRINTER, lab, RT, psych nurse, social sciences research scientist, erecting crane operator, teacher, information security officer, continuous pillowcase cutter)? Give summary @ -No Was smoking cessation discussed for >3mins.? @ -No Was critical care preformed (if so, how long)? @ -No Were there social determinants of health that impacted care today? How? (Homelessness, low income, unemployed, alcoholism, drug addiction, transportation, low edu. Level, literacy, decrease access to med. care, [facility], rehab)? @ -No Was there de-escalation of care discussed even if they declined (Discuss DNR or withdrawal of care, Hospice)? DNR status @ -No What co-morbidities impacted this encounter? (DM, HTN, Smoking, COPD, CAD, Cancer, CVA, ARF, Chemo, Hep., AIDS, mental health diagnosis, sleep apnea, morbid obesity)? @ -None Was patient admitted / discharged? Hospital course, mention meds given and route, prescriptions, significant lab abnormalities, going to OR and other pertinent info. @ -Chest x-ray unremarkable. Budesonide nasal spray and saline nasal spray sent to patient's pharmacy. Advised honey and warm fluids along with humidifier for URI symptoms. Continue Tylenol and Robitussin as directed. Follow-up with PCP for any ongoing symptoms. Discussed patient with Dr. Elder. Undiagnosed new problem with uncertain prognosis? @ -No Drug Therapy requiring intensive monitoring for toxicity (Heparin, Nitro, Insulin, Cardizem)? @ -No Were any procedures done? @ -No Diagnosis/symptom? @ -Upper respiratory infection Acute, or Chronic, or Acute on Chronic? @ -Acute Uncomplicated (without systemic symptoms) or Complicated (systemic symptoms)? @ -Uncomplicated Side effects of treatment? @ -No Exacerbation, Progression, or Severe Exacerbation? @ -No Poses a threat to life or bodily function? How? (Chest pain, [place], [place], pneumonia, PE, COPD, DKA, ARF, appy, cholecystitis, CVA, Diverticulitis, Homicidal, Suicidal, threat to staff... and all critical care pts) @ -No Disposition Clinical Impression: Acute upper respiratory infection Disposition: HOME SELF-CARE Condition: Good Instructions (If sedation given, give patient instructions): Upper Respiratory Infection (ED) Additional Instructions: Warm fluids, honey and humidifier for cough and sore throat. Budesonide and saline nasal spray as directed for nasal congestion along with nasal saline irrigation once daily. Follow-up with PCP for any ongoing symptoms. Prescriptions: Budesonide [Budesonide Nasal [place]] 1 spray EA NOSTRIL Q12H PRN #8.43 ml PRN Reason: Congestion Sodium Chloride [Saline Mist] 1 spray EA NOSTRIL Q3H PRN #45 ml PRN Reason: Congestion Is patient prescribed a controlled substance at d/c from ED?: No Referrals: Elham,Chadd, MD [Primary Care Provider] - 1-2 days Time of Disposition: 18:21
[2024-12-01 18:50] VITALS: BP 130/82; PULSE 96; TEMP 98.2
== END 2024-12-01 18:50 | disposition home or self-care (01) ==
LOC: EC 16:18
DX: O99.512 Diseases of the respiratory system complicating pregnancy, second trimester (principal); J06.9 Acute upper respiratory infection, unspecified; O99.891 Other specified diseases and conditions complicating pregnancy; Z3A.21 21 weeks gestation of pregnancy
CPT/HCPCS: 71046; 99285

== ENCOUNTER 2025-03-30 15:50 | Inpatient (IN) | payer BC ==
[2025-03-30] MEDS ORDERED: TERBUTALINE 1 MG/ML VIAL SQ PRN (16:14)
[2025-03-30] MEDS ORDERED: TRANEXAMIC 1,000 MG/100ML-NACL 1,000 MG in EMPTY BAG 1 BAG IV PRN (16:14)
[2025-03-30] MEDS ORDERED: LIDOCAINE 0.5% (PF) 5 MG/ML (50 ML SDV) SQ PRN (16:14)
[2025-03-30] MEDS ORDERED: METHYLERGONOVINE 0.2 MG/ML 1 ML AMP IM PRN (16:14)
[2025-03-30] MEDS ORDERED: CARBOPROST TROMETHAMINE 250 MCG/ML 1 ML AMP IM PRN (16:14)
[2025-03-30] MEDS ORDERED: OXYTOCIN 10 UNIT/ML 1 ML VIAL IM PRN (16:14)
[2025-03-30] MEDS: LACTATED RINGERS 1,000 ML IV SCH (16:15)
[2025-03-30 17:02] LABS: Basophils # (A) 0.04 10*3/uL (0.00-0.10); Basophils % (A) 0.4 %; Eosinophils # (A) 0.04 10*3/uL (0.04-0.35); Eosinophils % (A) 0.4 %; HCT 39.1 % (37.2-46.3); HGB 12.9 g/dL (12.0-15.0); Lymphocytes # (A) 1.68 10*3/uL (0.90-5.00); Lymphocytes % (A) 15.3 %; MCH 27.4 pg (27.0-32.0); MCHC 33.0 g/dL (32.0-37.0); MCV 83.0 fL (80.0-97.0); Monocytes # (A) 0.65 10*3/uL (0.20-1.00); Monocytes % (A) 5.9 %; Neutrophils # (A) 8.43 10*3/uL (1.80-7.70); Neutrophils % (A) 76.9 %; Platelet Count 203 10*3/uL (140-440); RBC 4.71 10*6/uL (4.10-5.20); RDW 14.3 % (11.5-14.5); WBC 10.96 10*3/uL (4.50-10.00)
--- NOTE | 2025-03-30 17:15 | P.HPOB ---
History of Present Illness H&P Date: 03/30/25 Chief Complaint: 38+ weeks, spontaneous rupture of membranes, labor The patient is a 40-year-old 3 para 2-0-0-2 admitted at 38+ weeks as established by last menstrual period and confirmed by 10-week ultrasound. She is admitted with documented spontaneous rupture of membranes with clear fluid and in active labor. On labor delivery, all signs are reassuring with a category 1 heart rate tracing. Her has been uncomplicated. She does fall into the category of advanced maternal age and declined fraction testing. Group B strep status is negative. Obstetrical history: 3 para 2-0-0-2 with 2 term vaginal deliveries without complications. Current statistics are listed in history of present illness. EDC of 04/10/2025 was established by last menstrual period and confirmed by 10-week ultrasound. Laboratory workup demonstrates a blood type of O+ with a negative antibody screen. Rubella status is immune. The remainder of the laboratory workup was within normal limits. She did have an elevated early Glucola which was followed up by a normal 3-hour glucose tolerance test. Second trimester Glucola was within normal limits. Group B strep status is negative. Gynecologic history: Unremarkable with no history of any infections to include STDs. Review of Systems Review of systems is confined to history of present illness. Past Medical History Past Medical History: Chest Pain / Angina Additional Past Medical History / Comment(s): RECENT ADMISSION FOR CHEST PAIN History of Any Multi-Drug Resistant Organisms: None Reported Past Surgical History: No Surgical Hx Reported Additional Past Surgical History / Comment(s): left eye plastics Past Anesthesia/Blood Transfusion Reactions: No Reported Reaction Smoking Status: Never smoker - Past Family History Father Family Medical History: Hypertension Medications and Allergies Home Medications Medication Instructions Recorded Confirmed Type [place]-Linyah 28 1 tab PO HS 10/22/17 03/30/25 History Venlafaxine HCl [Effexor XR] 75 mg PO HS 10/22/17 03/30/25 History Omeprazole Magnesium [PriLOSEC OTC] 20 mg PO DAILY 11/15/17 03/30/25 History Budesonide [Budesonide Nasal [place]] 1 spray EA NOSTRIL Q12H PRN #8.43 12/01/24 03/30/25 Rx ml Sodium Chloride [Saline Mist] 1 spray EA NOSTRIL Q3H PRN #45 ml 12/01/24 03/30/25 Rx Allergies Allergy/AdvReac Type Severity Reaction Status Date / Time fluconazole [From Diflucan] Allergy Unknown Verified 12/01/24 16:27 Penicillins Allergy Anaphylaxis Verified 12/01/24 16:27 sulfamethoxazole Allergy Rash/Hives Verified 12/01/24 16:27 [From Bactrim] trimethoprim [From Bactrim] Allergy Rash/Hives Verified 12/01/24 16:27 Exam Intake and Output 03/30/25 03/30/25 03/30/25 06:59 14:59 22:59 Other: Weight 130.635 kg In general this is a well-developed, moderately obese white female in discomfort as she is in active labor. Her heart has a regular rhythm and rate without murmur. Her lungs clear to auscultation bilaterally in all [place]. Her abdomen is gravid, nondistended, has normal active bowel sounds, soft, nontender, and without any palpable masses aside from the uterine fundus. Her extremities are without any cyanosis, clubbing, or significant edema and are nontender to palpation bilaterally. Digital cervical examination demonstrates her cervix to be approximately 6 cm dilated, 70% effaced, with the vertex and presentation at -1-2 station. Spontaneous rupture of membranes is confirmed. Results Result Diagrams: 03/30/25 16:23 Abnormal Lab Results - Last 24 Hours (Table) 03/30/25 Range/Units 16:23 WBC 10.96 H (4.50-10.00) 10*3/uL MPV 12.5 H (9.5-12.2) fL Immature Gran # 0.12 H (0.00-0.04) 10*3/uL Neutrophils # 8.43 H (1.80-7.70) 10*3/uL Assessment and Plan (1) Active labor at term Current Visit: Yes Status: Acute Code(s): QLA3640 - SNOMED Code(s): 39957465 (2) Spontaneous rupture of membranes Current Visit: Yes Status: Acute Code(s): [id number] - SNOMED Code(s): 595294245 Plan: The patient is admitted for active management of labor. She has declined analgesia at this time. She will continue to have close maternal and surveillance and expectant management will be practiced.
[2025-03-30] MEDS: OXYTOCIN 30 UNITS/500 ML NS 30 UNIT in SALINE 1 500ML.BAG IV SCH (17:57)
--- NOTE | 2025-03-30 18:10 | P.PROBDLV ---
Vaginal Delivery Note - . Vaginal Delivery Note: Date of delivery/service: 03/30/2025 The patient is a 40-year-old 3 para 2-0-0-2 admitted at 38-3/7 weeks by good dating parameters. She is admitted with documented spontaneous rupture of membranes and active labor with all signs reassuring, category 1 heart rate tracing. Her was complicated only by advanced maternal age for which she declined fraction testing for trisomies. Group B strep status is negative. She declined analgesia and progressed relatively quickly to complete or after she pushed past an anterior lip over the course of approximately 4 contractions to a normal spontaneous vaginal delivery of a viable 7 pound 4 ounce baby girl with Apgars of 9 at 1 minute and 9 at 5 minutes delivered in the direct occiput anterior position. The placenta was delivered spontaneously, intact, and grossly normal with a grossly normal three-vessel cord inserted approximately 4 cm from the margin of the placental disc. There were no lacerations of the perineum, vagina, or cervix. Estimated blood loss for the case was approximate 100 mL. There were no complications. Both mother and are resting comfortably in recovery.
[2025-03-30 19:51] VITALS: RESP 16
[2025-03-30] MEDS ORDERED: IBUPROFEN 800 MG TAB PO PRN (21:18)
[2025-03-30] MEDS ORDERED: diphenhydrAMINE 50 MG/ML 1 ML VIAL IVP PRN ×2 (21:18)
[2025-03-30] MEDS ORDERED: ACETAMINOPHEN TAB 500 MG TAB PO PRN (21:18)
[2025-03-30] MEDS ORDERED: BENZOCAINE/MENTHOL SPRAY 1 GM/SPRAY AEROSOL TOPICAL PRN (21:18)
[2025-03-30] MEDS ORDERED: LANOLIN CREAM 1 GM TUBE TOPICAL PRN (21:18)
[2025-03-30] MEDS ORDERED: SIMETHICONE 80 MG CHEWABLE PO PRN (21:18)
[2025-03-30] MEDS ORDERED: ZOLPIDEM 5 MG TAB PO PRN (21:18)
[2025-03-30] MEDS ORDERED: diphenhydrAMINE 25 MG CAP PO PRN (21:18)
[2025-03-30] MEDS ORDERED: HYDROCORTISONE 2.5% RECTAL CREAM 30 GM TUBE RECTAL PRN (21:18)
[2025-03-31 05:14] LABS: Basophils # (A) 0.04 10*3/uL (0.00-0.10); Basophils % (A) 0.3 %; Eosinophils # (A) 0.03 10*3/uL (0.04-0.35); Eosinophils % (A) 0.2 %; HCT 32.9 % (37.2-46.3); HGB 10.9 g/dL (12.0-15.0); Lymphocytes # (A) 2.26 10*3/uL (0.90-5.00); Lymphocytes % (A) 16.9 %; MCH 27.7 pg (27.0-32.0); MCHC 33.1 g/dL (32.0-37.0); MCV 83.5 fL (80.0-97.0); Monocytes # (A) 1.01 10*3/uL (0.20-1.00); Monocytes % (A) 7.6 %; Neutrophils # (A) 9.86 10*3/uL (1.80-7.70); Neutrophils % (A) 74.0 %; Platelet Count 197 10*3/uL (140-440); RBC 3.94 10*6/uL (4.10-5.20); RDW 14.2 % (11.5-14.5); WBC 13.34 10*3/uL (4.50-10.00)
[2025-03-31] MEDS: SENNOSIDES-DOCUSATE SODIUM 1 EACH TAB PO SCH (10:20)
--- NOTE | 2025-03-31 11:26 | P.DS ---
Providers Date of admission: 03/30/25 16:11 Expected date of discharge: 03/31/25 Attending physician: Taco Conrad Primary care physician: Taco Conrad - Discharge Diagnosis(es) (1) Active labor at term Current Visit: Yes Status: Acute (2) Spontaneous rupture of membranes Current Visit: Yes Status: Acute (3) Normal spontaneous vaginal delivery Current Visit: Yes Status: Acute Hospital Course: The patient is a 40-year-old 3 para 2-0-0-2 admitted at 38-3/7 weeks by good dating parameters. She is admitted with spontaneous rupture of membranes and active labor with all signs reassuring, category 1 heart rate tracing. Her was uncomplicated and group B strep status is negative. On labor and delivery, she declined analgesia and progressed fairly quickly to complete and then pushed to a normal spontaneous vaginal delivery of a viable 7 pound 4 ounce baby girl with Apgars of 9 at 1 minute and 9 at 5 minutes. Her course was unremarkable with vital signs remaining stable and her temperature was afebrile throughout. She was deemed stable for discharge on day #1 and was discharged to follow-up in the office in 6 weeks time routinely. Discharge instructions included calling for any significantly increased bleeding or foul-smelling lochia, significantly increased fever or abdominal pain, perineal complaints, breast complaints, or anything else that concerned her. She was additionally instructed to have nothing in the vagina for at least 6 weeks time to include intercourse. She understood her instructions and agrees to follow-up as noted above. Discharge medications included [id number] analgesic pain medications as well as continued vitamins as she has opted to breast-feed. Maternal blood type is O+ and rubella status is immune. Procedures: #1. Normal spontaneous vaginal delivery Patient Condition at Discharge: Stable Plan - Discharge Summary New Discharge Prescriptions: No Action Venlafaxine HCl [Effexor XR] 75 mg PO HS [place] 28 1 tab PO HS Omeprazole Magnesium [PriLOSEC OTC] 20 mg PO DAILY Budesonide [Budesonide Nasal [place]] 1 spray EA NOSTRIL Q12H PRN #8.43 ml PRN Reason: Congestion Sodium Chloride [Saline Mist] 1 spray EA NOSTRIL Q3H PRN #45 ml PRN Reason: Congestion Discharge Medication List [place] 28 1 tab PO HS 10/22/17 [History] Venlafaxine HCl [Effexor XR] 75 mg PO HS 10/22/17 [History] Omeprazole Magnesium [PriLOSEC OTC] 20 mg PO DAILY 11/15/17 [History] Budesonide [Budesonide Nasal [place]] 1 spray EA NOSTRIL Q12H PRN #8.43 ml 12/01/24 [Rx] Sodium Chloride [Saline Mist] 1 spray EA NOSTRIL Q3H PRN #45 ml 12/01/24 [Rx] Discharge Disposition: HOME SELF-CARE
[2025-04-01 08:19] VITALS: BP 133/85; PULSE 84; TEMP 97.6
== END 2025-04-01 18:10 | disposition home or self-care (01) | DRG 807 ==
LOC: FBPOP 15:50 → 4FBP 16:11
PROVIDERS: ADMIT Obstetrics & Gynecology; ATTEND Obstetrics & Gynecology
PROC: 10E0XZZ Delivery of Products of Conception, External Approach (ICD-10-PCS; principal; 2025-03-30)
DX: O80 Encounter for full-term uncomplicated delivery (principal); Z37.0 Single live birth; O09.523 Supervision of elderly multigravida, third trimester; Z3A.38 38 weeks gestation of pregnancy; Z82.49 Family history of ischemic heart disease and other diseases of the circulatory system
CPT/HCPCS: 84112; 85025; 86850; 86900; 86901; 99213